=== PATIENT | female | born 1980 | race Caucasian/White ===

== ENCOUNTER 2016-09-19 07:21 | Emergency (ER) | payer BC ==
--- NOTE | 2016-09-19 07:45 | EDM.PDOC ---
ED HPI Trauma - General Chief Complaint: Lower Extremity Injury/Pain Stated Complaint: INJURED LEFT ANKLE Time Seen by Provider: 09/19/16 07:39 Source: Reports: Patient History Limitations: Reports: No limitations - History of Present Illness INITIAL COMMENTS - FREE TEXT/NARRATIVE: 35-year-old female presents to the ED after slipping while walking downstairs this morning and were home. She suffered an inversion injury to her left ankle causing her to fall to her buttocks. She denies any other injuries other than her left ankle which is unable to weight-bear on. No previous surgery or injury to the left ankle she can recall. Injury occurred about 0630 hours this morning. Symptom Onset Date: 09/19/16 Symptom Onset Time: 06:30 Occurred When: this morning Occurred Where: home Method of Injury: fall Severity: moderate (Slipped while walking down stairs missed the last 4 stairs.) Pain/Injury Location: Reports: lower extremity, left (Left lateral ankle primarily) Associated Symptoms: Reports: no other symptoms Allergies/ADRs: Allergies No Known Allergies Allergy (Verified 09/19/16 07:36) Home Medications: Ambulatory Orders . 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: Musculoskeletal History: Reports: None Neurological History: Reports: None Psychiatric History: Reports: None Endocrine/Metabolic History: Reports: None Social & Family History - Family History Family Medical History: Noncontributory - Tobacco Use Smoking Status *Q: Never Smoker Second Hand Smoke Exposure: No - Recreational Drug Use Recreational Drug Use: No - Living Situation & Occupation Living situation: Reports: Occupation: employed Review of Systems - Review of Systems Review Of Systems: See Below Constitutional: Reports: no symptoms Eyes: Reports: no symptoms Ears: Reports: no symptoms Nose: Reports: no symptoms Mouth/Throat: Reports: no symptoms Respiratory: Reports: No Symptoms Cardiovascular: Reports: no symptoms GI/Abdominal: Reports: No symptoms Musculoskeletal: Reports: no symptoms Skin: Reports: no symptoms Neurological: Reports: No Symptoms Psychiatric: Reports: no symptoms Trauma Exam - Physical Exam Exam: See Below Exam Limited By: No limitations General Appearance: Reports: alert, WD/WN, mild distress Head: Reports: atraumatic, normocephalic Throat/Mouth: Reports: Normal inspection, Normal lips, Normal teeth, Normal oropharynx Neck: Reports: non-tender, full range of motion, normal alignment, normal inspection Respiratory Exam: Reports: no respiratory distress, lungs clear, normal breath sounds, no accessory muscle use Cardiovascular: Reports: normal peripheral pulses, regular rate, rhythm, no edema, no gallop, no murmur GI/Abdominal: Reports: normal bowel sounds, soft, non tender, no organomegaly, other (No previous abdominal surgery) Back: Reports: full range of motion, normal inspection, non-tender. Denies: CVA tenderness (R), CVA tenderness (L) Extremities: Reports: other (Marked swelling of the lateral aspect of the left ankle the distal fibula. Any movement in terms of dorsiflexion or plantar flexion causes pain. 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, no motor/sensory deficits, alert , normal mood/affect Skin: Reports: Normal color, Warm/dry Course - Vital Signs Last Recorded V/S: Last Vital Signs Temp 36.3 C 09/19/16 07:31 Pulse 76 09/19/16 07:31 Resp 14 09/19/16 07:31 BP 108/68 09/19/16 07:31 Pulse Ox 100 09/19/16 07:31 - Orders/Labs/Meds Orders: Active Orders 24 hr Category Date Time Status Ankle Min 3V Lt [CR] Stat Exams 09/19/16 07:39 Taken Meds: Medications Discontinued Medications Generic Name Dose Route Start Last Admin Trade Name Freq PRN Reason Stop Dose Admin Ibuprofen 600 mg 09/19/16 08:10 Motrin PO 09/19/16 08:11 ONETIME ONE Oxycodone/Acetaminophen 1 tab 09/19/16 08:10 Percocet 325-5 Mg PO 09/19/16 08:11 ONETIME ONE - Radiology Interpretation Free Text/Narrative:: 35-year-old female presents the ED after slipping and falling down some stairs in her home this morning. She suffered an inversion injury to her left ankle with marked swelling of the lateral distal fibula area. Plan x-ray of ankle to be obtained. She denies any possibility of . - Re-Assessments/Exams Free Text/Narrative Re-Assessment/Exam: 09/19/16 08 x-rays of the left ankle do not reveal any bony injuries. Stressing the ligaments did not reveal any laxity within the ankle itself. Stalin wrap applied by me. She will be nonweightbearing crutch walking for the next 5 days. Elevate and ice today and tomorrow. Motrin 600 mg every 6 hours needed for pain relief. Given a Percocet one tablet in the ED with Motrin 600 mg by mouth. Departure - Departure Time of Disposition: 08:11 Disposition: Home, Self-Care 01 Condition: fair Clinical Impression: Sprain of calcaneofibular ligament of left ankle Qualifiers: Encounter type: initial encounter Qualified Code(s): S93.412A - Sprain of calcaneofibular ligament of left ankle, initial encounter Forms: ED Department Discharge Additional Instructions: Evaluation in the emergency room today in regards to acute injury to the left ankle while walking downstairs this morning. Suffered an inversion injury with sprain of the lateral ligaments of the left ankle. Churchward Diana do not reveal any bony injuries. Check does not show any ligament laxity. Treatment is nonweightbearing crutch walking for the next 3-5 days. Patient start to weight- bear when he can weight-bear without any pain. This is usually for 5 days. Elevate the foot as much as possible today and tomorrow and ice pack to the area one half hour out of every 4 hours today and tomorrow. Stalin wrap on during the day and off at night. Motrin 600 mg every 6 hours or Aleve 2 tablets every 8 hours for pain relief. If not completely back to normal 10-12 days followup with personal physician. - My Orders Last 24 Hours: My Active Orders 09/19/16 07:39 Ankle Min 3V Lt [CR] Stat - Assessment/Plan Last 24 Hours: My Active Orders 09/19/16 07:39 Ankle Min 3V Lt [CR] Stat
[2016-09-19] MEDS ORDERED: Ibuprofen 600 MG Tab PO ONE (08:10)
[2016-09-19] MEDS ORDERED: Acetaminophen/oxyCODONE 325-5 MG Tab PO ONE (08:10)
--- NOTE | 2016-09-19 08:36 | CR ---
Left ankle: Four views of the left ankle were obtained. Comparison: No previous study. Small plantar spur is seen. Mild soft tissue swelling is identified. Ankle mortise is symmetric. No acute fracture, dislocation or other bony abnormality is seen. Impression: 1. Mild soft tissue swelling. Incidental plantar spur. 2. No acute bony abnormality is seen. Diagnostic code #2
[2016-09-19 09:54] VITALS: BP 107/70
== END 2016-09-19 09:10 | disposition home or self-care (01) ==
LOC: JD.ED 07:21
DX: S93.412A Sprain of calcaneofibular ligament of left ankle, initial encounter (principal); W10.8XXA Fall (on) (from) other stairs and steps, initial encounter; Y92.009 Unspecified place in unspecified non-institutional (private) residence as the place of occurrence of the external cause
CPT/HCPCS: 73610; 99284; A9270; 99283